=== PATIENT | male | born 1960 | race Caucasian/White ===

== ENCOUNTER 2021-04-16 11:33 | Emergency (ER) | payer OTHER ==
[~2021-04-16 11:33] MED LIST: 3IN1 COMMODE; ALDACTONE25 MG PO; AMIODARONE HCL200 MG PO; BUMEX 1MG TABLET1 MG PO; HCTZ12.5 MG PO; LOPRESSOR50 MG PO; PRINIVIL20 MG PO; TOPROL XL200 MG PO; XARELTO20 MG PO; [UNRECOGNIZED DRUG - REMARK]
[2021-04-16 12:47] LABS: BASOPHIL 0.3 % (0-2); EOSINOPHIL 0.3 % (0-5); HCT 44.6 % (42.0-52.0); HGB 15.2 g/dl (13.2-18.0); LYMPHOCYTE 8.6 % (15-48); MCH 32.3 pg (25.0-31.0); MCHC 34.1 g/dL (32.0-36.0); MCV 94.9 fL (78.0-100.0); MONOCYTE 7.8 % (0-12); NEUTROPHIL 82.2 % (41-80); NRBC 0; PLT 188 K/uL (150-400); WBC 15.1 K/uL (4.0-10.5)
[2021-04-16 13:01] LABS: ALBUMIN 3.7 g/dL (3.4-5.0); BILIRUBIN - TOTAL 1.1 mg/dL (0.2-1.0); BUN/CREAT RATIO (CALC) 15.4 RATIO; CREATININE 1.17 mg/dL (0.67-1.17); MAGNESIUM 2.1 mg/dL (1.8-2.4); POTASSIUM 3.8 mmol/L (3.5-5.1); TOTAL PROTEIN 7.7 g/dL (6.4-8.2)
[2021-04-16] MEDS ORDERED: KEFLEX250 MG PO (13:31)
[2021-04-16] MEDS ORDERED: CEPHALEXIN500 MG PO (13:31)
== END 2021-04-16 13:50 | disposition home or self-care (01) ==
LOC: FER 11:33
PROVIDERS: Emergency Medicine Emergency Medical Services
DX: L03.116 Cellulitis of left lower limb (principal); I48.91 Unspecified atrial fibrillation; I25.10 Atherosclerotic heart disease of native coronary artery without angina pectoris; I11.0 Hypertensive heart disease with heart failure; I50.9 Heart failure, unspecified; E11.9 Type 2 diabetes mellitus without complications; Z79.01 Long term (current) use of anticoagulants; Z79.899 Other long term (current) drug therapy
CPT/HCPCS: 36415; 80053; 83735; 85025; 85379; 93971

== ENCOUNTER 2021-08-10 12:58 | Emergency (ER) | payer OTHER ==
[~2021-08-10 12:58] MED LIST changes: +CEPHALEXIN500 MG PO; +KEFLEX250 MG PO
[2021-08-10 14:01] LABS: BASOPHIL 0.5 % (0-2); EOSINOPHIL 0.6 % (0-5); HCT 47.8 % (42.0-52.0); HGB 16.1 g/dl (13.2-18.0); LYMPHOCYTE 17.6 % (15-48); MCH 32.2 pg (25.0-31.0); MCHC 33.7 g/dL (32.0-36.0); MCV 95.6 fL (78.0-100.0); MONOCYTE 7.8 % (0-12); MPV 9.4 fL (6.0-9.5); NEUTROPHIL 72.8 % (41-80); NRBC 0; PLT 199 K/uL (150-400); RDW 13.1 % (11.5-14.0); WBC 8.4 K/uL (4.0-10.5)
[2021-08-10 14:13] LABS: INR 1.72 (0.9-1.2); PROTHROMBIN TIME 19.4 SECONDS (11.8-13.4); PTT 34.1 SECONDS (24.4-34.7)
[2021-08-10 14:26] LABS: ALBUMIN 4.1 g/dL (3.4-5.0); BILIRUBIN - TOTAL 0.8 mg/dL (0.2-1.0); CREATININE 1.08 mg/dL (0.67-1.17); GLOBULIN (CALCULATION) 3.5 g/dL; POTASSIUM 4.4 mmol/L (3.5-5.1); TOTAL PROTEIN 7.6 g/dL (6.4-8.2)
[2021-08-10 14:27] LABS: CKMB 1.1 ng/mL (0.0-3.6); PRO-BNP 230 pg/mL (<125)
== END 2021-08-10 14:59 | disposition home or self-care (01) ==
LOC: FER 12:58
PROVIDERS: Emergency Medicine
DX: R07.89 Other chest pain (principal); I10 Essential (primary) hypertension; I48.91 Unspecified atrial fibrillation
CPT/HCPCS: 36415; 71045; 80053; 82553; 83880; 84484; 85025; 85610; 85730; 93005

== ENCOUNTER 2021-10-24 15:35 | Emergency (ER) | payer OTHER | END 2021-10-24 19:00 | disposition home or self-care (01) | LOC: FER 15:35 | DX: R10.813 Right lower quadrant abdominal tenderness (principal) | CPT/HCPCS: 93971 ==